=== PATIENT | male | born 1950 | race Caucasian/White ===

== ENCOUNTER 2020-09-21 13:19 | Emergency (ER) | payer MEDICARE, OTHER ==
[~2020-09-21] VITALS: Ht 175.2 cm; Wt 79.0 kg
--- NOTE | 2020-09-21 13:56 | ED Respiratory ---
General Chief Complaint: Respiratory Problems Stated Complaint: SOB; COVID+ Nursing Triage Note: Pt presents per POV with history positive COVID since Friday. Symptoms of dry cough, fatigue and fever up to 102.0. Pt states RN granddaughter insists on ER visit as her mother (his dgt) in ER yesterday of COVID complication. Pt requests a basic examine and some steroid. Source: patient History of Present Illness Date Seen by Provider: Sep 21, 2020 Time Seen by Provider: 13:21 Initial Comments 70-year-old male presenting with shortness of breath and cough as well as fatigue and fever. His daughter in the emergency department yesterday with respiratory complications. The patient himself was tested and found to be positive for COVID last Friday. He continues to have dry nonproductive cough with fever up to 102 Fahrenheit and fatigue. He states that today he had family in town after the of his daughter. One of them includes his granddaughter who is a nurse and was concerned about his symptoms. He also is a smoker about one pack per day. He denies having pain anywhere. He is not more short of breath today than usual. He did take Tylenol about 20 minutes prior to arriving in the emergency department. He usually follows with the [place] clinic here in town and only takes medicine for cholesterol. He denies any allergies to medications. Allergies and Home Medications Allergies Coded Allergies: No Known Drug Allergies (Unverified , 09/21/20) Home Medications Prednisone 20 Mg Tab, 40 MG PO DAILY Prescribed by: KOLBY HAZEL on 09/21/20 3228 Patient Home Medication List Home Medication List Reviewed: Yes Review of Systems Review of Systems Constitutional: chills; No dizziness; fever, malaise EENTM: No ear discharge, No hoarseness, No nose congestion, No throat pain Respiratory: see HPI; No stridor, No wheezing Cardiovascular: No chest pain Gastrointestinal: no symptoms reported Genitourinary: no symptoms reported Musculoskeletal: no symptoms reported Skin: no symptoms reported Psychiatric/Neurological: No Symptoms Reported Hematologic/Lymphatic: No Symptoms Reported Past Kocburb-Mzuuzp-Ndiwmu Hx Past Med/Social Hx: Reviewed Nursing Past Med/Soc Hx Patient Social History Alcohol Use: Denies Use Recreational Drug Use: No Smoking Status: Current Everyday Smoker Type Used: Cigarettes 2nd Hand Smoke Exposure: Yes Recent Foreign Travel: No Contact w/Someone Who Travel: No Recent Infectious Disease Expo: No Recent Hopitalizations: No Immunizations Up To Date Date of Influenza Vaccine: Jul 27, 2020 Seasonal Allergies Seasonal Allergies: No Past Medical History Surgeries: Yes (stents for L leg circulation) Respiratory: No (Tobaccoism) Cardiac: Yes High Cholesterol Neurological: No Genitourinary: No Gastrointestinal: No Musculoskeletal: No Endocrine: No HEENT: No Cancer: No Psychosocial: No Integumentary: No Blood Disorders: No Physical Exam Vital Signs - First Documented 09/21/20 13:25 Temp 37.4 Pulse 87 Resp 20 B/P (MAP) 147/75 (99) Pulse Ox 95 O2 Delivery Room Air Capillary Refill : Less Than 3 Seconds Height: '" Weight: lbs. oz. kg; 25.00 BMI Method: General Appearance: WD/WN, no apparent distress HEENT: PERRL/EOMI, pharynx normal Neck: non-tender, supple, normal inspection Respiratory: chest non-tender, lungs clear, normal breath sounds, no respiratory distress, no accessory muscle use Cardiovascular: normal peripheral pulses, regular rate, rhythm Gastrointestinal: normal bowel sounds, non tender, soft, no pulsatile mass Extremities: normal range of motion, non-tender, normal inspection, no pedal edema, normal capillary refill Neurologic/Psychiatric: data entry II-XII nml as tested, no motor/sensory deficits, alert, oriented x 3 Skin: normal color, warm/dry Focused Exam Lactate Level 09/21/20 13:40: Lactic Acid Level 1.02 Lactic Acid Level Laboratory Tests Test 09/21/20 13:40 Lactic Acid Level 1.02 MMOL/L (0.50-2.00) Progress/Results/Core Measures Suspected Sepsis Recent Fever Within 48 Hours: Yes Infection Criteria Present: Suspected New Infection New/Unexplained Altered Menta: No Sepsis Screen: No Definite Risk SIRS Temperature: Pulse: 87 Respiratory Rate: 20 Laboratory Tests 09/21/20 13:40: White Blood Count 4.1L Blood Pressure 147 /75 Mean: 99 09/21/20 13:40: Lactic Acid Level 1.02 Laboratory Tests 09/21/20 13:40: Creatinine 0.83, Platelet Count 219, Total Bilirubin 0.4 Results/Orders Lab Results Laboratory Tests Test 09/21/20 13:40 Range/Units White Blood Count 4.1 L 4.3-11.0 10^3/uL Red Blood Count 5.17 4.35-5.85 10^6/uL Hemoglobin 16.1 13.3-17.7 G/DL Hematocrit 47 40-54 % Mean Corpuscular Volume 91 80-99 FL Mean Corpuscular Hemoglobin 31 25-34 PG Mean Corpuscular Hemoglobin Concent 34 32-36 G/DL Red Cell Distribution Width 13.5 10.0-14.5 % Platelet Count 219 130-400 10^3/uL Mean Platelet Volume 8.8 7.4-10.4 FL Immature Granulocyte % (Auto) 0 % Neutrophils (%) (Auto) 69 42-75 % Lymphocytes (%) (Auto) 19 12-44 % Monocytes (%) (Auto) 12 0-12 % Eosinophils (%) (Auto) 0 0-10 % Basophils (%) (Auto) 0 0-10 % Neutrophils # (Auto) 2.9 1.8-7.8 X 10^3 Lymphocytes # (Auto) 0.8 L 1.0-4.0 X 10^3 Monocytes # (Auto) 0.5 0.0-1.0 X 10^3 Eosinophils # (Auto) 0.0 0.0-0.3 10^3/uL Basophils # (Auto) 0.0 0.0-0.1 10^3/uL Immature Granulocyte # (Auto) 0.0 0.0-0.1 10^3/uL Sodium Level 134 L 135-145 MMOL/L Potassium Level 4.1 3.6-5.0 MMOL/L Chloride Level 100 98-107 MMOL/L Carbon Dioxide Level 20 L 21-32 MMOL/L Anion Gap 14 5-14 MMOL/L Blood Urea Nitrogen 16 7-18 MG/DL Creatinine 0.83 0.60-1.30 MG/DL Estimat Glomerular Filtration Rate > 60 BUN/Creatinine Ratio 19 Glucose Level 100 70-105 MG/DL Lactic Acid Level 1.02 0.50-2.00 MMOL/L Calcium Level 8.5 8.5-10.1 MG/DL Corrected Calcium 8.7 8.5-10.1 MG/DL Total Bilirubin 0.4 0.1-1.0 MG/DL Aspartate Amino Transf (AST/SGOT) 33 5-34 U/L Alanine Aminotransferase (ALT/SGPT) 21 0-55 U/L Alkaline Phosphatase 94 40-136 U/L C-Reactive Protein 3.26 H <0.50 MG/DL Total Protein 7.1 6.4-8.2 GM/DL Albumin 3.8 3.2-4.5 GM/DL My Orders Orders - KOLBY HAZEL MD Monitor-Rhythm Ecg Trace Only (09/21/20 13:45) Ed Iv/Invasive Line Start (09/21/20 13:45) Cbc With Automated Diff (09/21/20 13:45) Comprehensive Metabolic Panel (09/21/20 13:45) Crp Fs (09/21/20 13:45) Lactic Acid Analyzer (09/21/20 13:45) Chest 1 View Ap/Pa Only (09/21/20 13:46) Rx-Albuterol Inhaler (Rx-Ventolin Hfa) (09/21/20 14:00) Dexamethasone Injection (Decadron Inje (09/21/20 13:50) Covid-19 External Lab Results (09/21/20 13:49) Isolation Central Supply Req (09/21/20 13:49) Medications Given in ED Current Medications Medications Dose Ordered Sig/Claudia Route Start Time Stop Time Status Last Admin Dose Admin Albuterol Sulfate 2 PUFFS IH Q4-6HR PRN short... RTQ4HR PRN IH 09/21/20 14:00 09/21/20 14:45 DC 09/21/20 14:01 18 GM Vital Signs/I&O 09/21/20 09/21/20 13:25 14:45 Temp 37.4 37.3 Pulse 87 79 Resp 20 19 B/P (MAP) 147/75 (99) 145/80 (99) Pulse Ox 95 95 O2 Delivery Room Air Room Air Capillary Refill : Less Than 3 Seconds Blood Pressure Mean: 99 Progress Note #1: Progress Note Obtain basic labs and lactic acid. Will try breathing treatment with inhaler and give a dose of dexamethasone 10 mg IV. Obtain chest x-ray to evaluate for possible infiltrates for bacterial source for pneumonia. On his initial exam and review of vital signs his oxygen saturation is 95-96% on room air. He is not tachycardic and his blood pressure is normal. His lung sounds are clear. Would anticipate that he could be discharged home, and he has no indication to admit off of just his initial exam and vitals. Progress Note #2: Time: 14:14 Progress Note CBC shows WBC count at lower limit of normal at 4.1 consistent with viral infection. Chemistry shows normal Lactic acid at 1.02. Elevated CRP to go with inflammatory response of infection. CXR with diffuse inflammatory changes but no definite infiltrate to indicate a bacterial pneumonia. Continued oxygen saturation 95-96% on room air with pulse around 80 sinus rhythm and blood pressure 136/85, respiratory rate 15-17 breaths per minute. 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 Diagnostic Imaging Diagonstic Imaging: Xray Plain Films/CT/US/NM/MRI: chest Comments [facility]. [place], [place] NAME: NASEEM PYLE [facility] REC#: [id number] PT STATUS: REG ER : 1950 PHYSICIAN: KOLBY HAZEL MD ADMIT DATE: 09/21/20/ER FS Draft Date of Exam:09/21/20 CHEST 1 VIEW AP/PA ONLY Indication: Dyspnea and fever, follow-up COVID pneumonia. Comparison: None. Discussion: 2 portable frontal upright views of the chest were obtained. Mild infiltrates are noted within the right mid-upper lung, consistent with viral pneumonia. Normal heart size. No pleural fluid or pneumothorax. No osseous abnormality. Impression: 1. Right mid-upper lung infiltrate. Dictated on workstation # [id number] Dict: 09/21/20 1413 Trans: 09/21/20 1414 [facility] [id number] Interpreted by: HATTIE SANCHEZ MD Electronically signed by: Departure Impression Primary Impression: Shortness of breath Additional Impressions: COVID-19 virus infection Tobacco abuse Disposition: 01 HOME, SELF-CARE Condition: Stable Departure-Patient Inst. Decision time for Depature: 14:33 Referrals: SREE AMOR MD (PCP/Family) Primary Care Physician Patient Instructions: Coronavirus Disease 2019 (COVID-19) (DC), How to Use Your Metered Dose Inhaler (Adults), SMOKING CESSATION, Shortness of Breath (Dyspnea) (DC) Add. Discharge Instructions: Use Albuterol inhaler 2 puffs every 4 to 6 hours as needed for shortness of emerita ath or wheezing. Use steroid to help with inflammation in your airways and help with cough. May continue with Acetaminophen or Ibuprofen as needed for fever over 101 F Make sure you are drinking plenty of fluids and stay well hydrated. Get plenty of rest. Follow up with clinic if not improving this next week. Return or seek medical care for worsening breathing that is not improving with using the inhaler and steroid, fever that is not responding to medicine to help bring it down below 101 F. All discharge instructions reviewed with patient and/or family. Voiced understanding. Scripts Prednisone (Prednisone) 20 Mg Tab 40 MG PO DAILY for 5 Days, #10 TAB 0 Refills Prov: KOLBY HAZEL MD 09/21/20 KOLBY HAZEL MD Sep 21, 2020 13:56
[2020-09-21] MEDS ORDERED: RX-ALBUTEROL INHALER (VENTOLIN HFA) 18 GM IH PRN (14:00)
[2020-09-21 14:03] LABS: BASOPHILS % (AUTO) 0 % (0-10); EOSINOPHILS % (AUTO) 0 % (0-10); HEMATOCRIT 47 % (40-54); HEMOGLOBIN 16.1 G/DL (13.3-17.7); LYMPHOCYTES # (AUTO) 0.8 X 10^3 (1.0-4.0); LYMPHOCYTES % (AUTO) 19 % (12-44); MEAN CORPUSCULAR HEMOGLOBIN 31 PG (25-34); MEAN CORPUSCULAR HGB CONC 34 G/DL (32-36); MEAN CORPUSCULAR VOLUME 91 FL (80-99); MEAN PLATELET VOLUME 8.8 FL (7.4-10.4); MONOCYTES # (AUTO) 0.5 X 10^3 (0.0-1.0); MONOCYTES % (AUTO) 12 % (0-12); NEUTROPHILS # (AUTO) 2.9 X 10^3 (1.8-7.8); NEUTROPHILS % (AUTO) 69 % (42-75); PLATELET COUNT 219 10^3/uL (130-400); WHITE BLOOD COUNT 4.1 10^3/uL (4.3-11.0)
[2020-09-21 14:10] LABS: CARBON DIOXIDE 20 MMOL/L (21-32); CHLORIDE 100 MMOL/L (98-107); POTASSIUM 4.1 MMOL/L (3.6-5.0); SODIUM 134 MMOL/L (135-145)
[2020-09-21 14:11] LABS: ALANINE AMINOTRANSFERASE 21 U/L (0-55); ALBUMIN 3.8 GM/DL (3.2-4.5); ALKALINE PHOSPHATASE 94 U/L (40-136); BILIRUBIN,TOTAL 0.4 MG/DL (0.1-1.0); BUN/CREATININE RATIO 19; CALCIUM 8.5 MG/DL (8.5-10.1); CREATININE SERUM 0.83 MG/DL (0.60-1.30); GFR ESTIMATED > 60; GLUCOSE 100 MG/DL (70-105); TOTAL PROTEIN 7.1 GM/DL (6.4-8.2)
--- NOTE | 2020-09-21 14:15 | Diagnostic Imaging Report ---
Indication: Dyspnea and fever, follow-up COVID pneumonia. Comparison: None. Discussion: 2 portable frontal upright views of the chest were obtained. Mild infiltrates are noted within the right mid-upper lung, consistent with viral pneumonia. Normal heart size. No pleural fluid or pneumothorax. No osseous abnormality. Impression: 1. Right mid-upper lung infiltrate. Dictated by: Dictated on workstation # [id number]
[2020-09-21] MEDS ORDERED: PRD20T PO (14:33)
[2020-09-21 14:45] VITALS: BP 145/80
--- NOTE | 2020-09-21 14:45 | NUR ---
See graphic vital sign strips for further assessment.
[2020-09-21] MEDS ORDERED: Simvastatin (15:10)
== END 2020-09-21 14:45 | disposition home or self-care (01) ==
LOC: EDUNIT# 13:19 → ER FS 13:21
DX: U07.1 COVID-19 (principal); F17.210 Nicotine dependence, cigarettes, uncomplicated; Z79.52 Long term (current) use of systemic steroids
CPT/HCPCS: 36415; 71045; 80053; 83605; 85025; 86141; 93041

== ENCOUNTER 2020-10-15 10:03 | Emergency (ER) | payer MEDICARE, OTHER ==
[~2020-10-15] VITALS: Ht 175.2 cm; Wt 75.0 kg
[~2020-10-15 10:03] MED LIST: PRD20T PO; Simvastatin
--- NOTE | 2020-10-15 10:31 | ED GU-Male ---
General Chief Complaint: - Urinary Stated Complaint: UNABLE TO URINATE Source: patient Exam Limitations: no limitations History of Present Illness Date Seen by Provider: Oct 15, 2020 Time Seen by Provider: 10:11 Initial Comments Patient presents ER by private conveyance from home with chief complaint of urinary retention since yesterday. He started antiitch medicine more powerful than Benadryl from his doctor 2 days ago and it has caused urinary retention. He is never had prostatism or have to see a urologist before. Never had a Marquez catheter. He is not having painful urination just inability to urinate more than a few drops at a time. He is not having fever or chills. He says his rash is better. He did get a shingles shot. No diarrhea. Follows with Dr. Luciano in [place] as well as the [place]. Allergies and Home Medications Allergies Coded Allergies: No Known Drug Allergies (Unverified , 09/21/20) Home Medications Ondansetron 4 Mg Tab.rapdis, 4 MG PO Q6H PRN for NAUSEA/VOMITING Prescribed by: KAMRAN MCCARTY on 10/15/20 1416 Prednisone 20 Mg Tab, 40 MG PO DAILY Prescribed by: KOLBY HAZEL on 09/21/20 1433 Tamsulosin HCl 0.4 Mg Cap, 0.4 MG PO HS Prescribed by: KAMRAN MCCARTY on 10/15/20 1416 Patient Home Medication List Home Medication List Reviewed: Yes Review of Systems Review of Systems Constitutional: No chills, No diaphoresis, No fever EENTM: No ear discharge, No ear pain Respiratory: No cough, No short of breath Cardiovascular: No chest pain, No Hx of Intervention Gastrointestinal: No RUQ; see HPI, abdominal pain (Suprapubic fullness and pressure); No constipation, No diarrhea, No nausea Genitourinary: denies discharge, denies dysuria Musculoskeletal: No back pain, No joint pain All Other Systemes Reviewed Negative Unless Noted: Yes Past Ysxtumh-Lbyurm-Attumd Hx Patient Social History Alcohol Use: Denies Use Recreational Drug Use: No Smoking Status: Current Everyday Smoker Type Used: Cigarettes 2nd Hand Smoke Exposure: Yes Recent Foreign Travel: No Contact w/Someone Who Travel: No Recent Hopitalizations: No Immunizations Up To Date Date of Influenza Vaccine: Jul 27, 2020 Seasonal Allergies Seasonal Allergies: No Past Medical History Surgeries: Yes (stents for L leg circulation) Respiratory: No (Tobaccoism) Cardiac: Yes High Cholesterol Neurological: No Genitourinary: No Gastrointestinal: No Musculoskeletal: No Endocrine: No HEENT: No Cancer: No Psychosocial: No Integumentary: No Blood Disorders: No Physical Exam Vital Signs Vital Signs - First Documented 10/15/20 10:09 Pulse 92 Resp 18 Capillary Refill : Height, Weight, BMI Height: '" Weight: lbs. oz. kg; 25.00 BMI Method: General Appearance: WD/WN, moderate distress HEENT: PERRL/EOMI, pharynx normal Neck: full range of motion, normal inspection Cardiovascular: normal peripheral pulses, regular rate, rhythm Respiratory: no respiratory distress, no accessory muscle use Gastrointestinal: normal bowel sounds, soft, tenderness (Suprapubic prominent bladder impression) Neurologic/Psychiatric: alert, oriented x 3 Progress/Results/Core Measures Suspected Sepsis SIRS Temperature: Pulse: Respiratory Rate: Laboratory Tests 10/15/20 10:46: White Blood Count 9.5 Blood Pressure / Mean: Laboratory Tests 10/15/20 10:46: Creatinine 1.22, Platelet Count 356, Total Bilirubin 0.7 Results/Orders Lab Results Laboratory Tests Test 10/15/20 10:37 10/15/20 10:46 10/15/20 13:34 Range/Units Urine Color YELLOW Urine Clarity CLEAR Urine pH 8.0 5-9 Urine Specific [place] 1.015 L 1.016-1.022 Urine Protein NEGATIVE NEGATIVE Urine Glucose (UA) NEGATIVE NEGATIVE Urine Ketones TRACE H NEGATIVE Urine Nitrite NEGATIVE NEGATIVE Urine Bilirubin NEGATIVE NEGATIVE Urine Urobilinogen 0.2 < = 1.0 MG/DL Urine Leukocyte Esterase NEGATIVE NEGATIVE Urine RBC (Auto) NEGATIVE NEGATIVE Urine RBC NONE /HPF Urine WBC NONE /HPF Urine Squamous Epithelial Cells NONE /HPF Urine Crystals NONE /LPF Urine Amorphous Sediment LARGE MARK PHOSPHATE H /LPF Urine Bacteria NEGATIVE /HPF Urine Casts NONE /LPF Urine Mucus NEGATIVE /LPF Urine Culture Indicated NO White Blood Count 9.5 4.3-11.0 10^3/uL Red Blood Count 5.20 4.30-5.52 10^6/uL Hemoglobin 16.2 13.3-17.7 g/dL Hematocrit 47 40-54 % Mean Corpuscular Volume 90 80-99 fL Mean Corpuscular Hemoglobin 31 25-34 pg Mean Corpuscular Hemoglobin Concent 35 32-36 g/dL Red Cell Distribution Width 13.2 10.0-14.5 % Platelet Count 356 130-400 10^3/uL Mean Platelet Volume 8.4 L 9.0-12.2 fL Immature Granulocyte % (Auto) 0 % Neutrophils (%) (Auto) 84 H 42-75 % Lymphocytes (%) (Auto) 9 L 12-44 % Monocytes (%) (Auto) 7 0-12 % Eosinophils (%) (Auto) 0 0-10 % Basophils (%) (Auto) 0 0-10 % Neutrophils # (Auto) 8.0 H 1.8-7.8 10^3/uL Lymphocytes # (Auto) 0.8 L 1.0-4.0 10^3/uL Monocytes # (Auto) 0.7 0.0-1.0 10^3/uL Eosinophils # (Auto) 0.0 0.0-0.3 10^3/uL Basophils # (Auto) 0.0 0.0-0.1 10^3/uL Immature Granulocyte # (Auto) 0.0 0.0-0.1 10^3/uL Sodium Level 134 L 135-145 MMOL/L Potassium Level 3.3 L 3.6-5.0 MMOL/L Chloride Level 94 L 98-107 MMOL/L Carbon Dioxide Level 25 21-32 MMOL/L Anion Gap 15 H 5-14 MMOL/L Blood Urea Nitrogen 30 H 7-18 MG/DL Creatinine 1.22 0.60-1.30 MG/DL Estimat Glomerular Filtration Rate 59 BUN/Creatinine Ratio 25 Glucose Level 116 H 70-105 MG/DL Calcium Level 9.0 8.5-10.1 MG/DL Corrected Calcium 9.2 8.5-10.1 MG/DL Total Bilirubin 0.7 0.1-1.0 MG/DL Aspartate Amino Transf (AST/SGOT) 30 5-34 U/L Alanine Aminotransferase (ALT/SGPT) 26 0-55 U/L Alkaline Phosphatase 79 40-136 U/L Total Protein 7.4 6.4-8.2 GM/DL Albumin 3.8 3.2-4.5 GM/DL Group A Streptococcus Screen NEGATIVE NEGATIVE My Orders Orders - KAMRAN MCCARTY Ua Culture If Indicated (10/15/20 10:04) Catheter(Urinary) Insert & Ass 03,15 (10/15/20 10:04) Bladder Scan (10/15/20 10:19) Lidocaine 2% (Urojet) (Xylocaine Urojet) (10/15/20 10:30) Cbc With Automated Diff (10/15/20 10:26) Comprehensive Metabolic Panel (10/15/20 10:26) Lidocaine 2% (Urojet) (Xylocaine Urojet) (10/15/20 10:24) Ondansetron Injection (Zofran Injectio (10/15/20 11:30) Ed Iv/Invasive Line Start (10/15/20 11:32) Lactated Ringers (Lr 1000 Ml Iv Solution (10/15/20 11:45) Abdomen, Flat & Upright/Decub (10/15/20 11:52) Bisacodyl Suppository (Dulcolax Supposit (10/15/20 12:45) Rapid Strep A Screen (10/15/20 13:29) Medications Given in ED Current Medications Medications Dose Ordered Sig/Claudia Route Start Time Stop Time Status Last Admin Dose Admin Bisacodyl 10 mg ONCE ONCE KS 10/15/20 12:45 10/15/20 12:46 DC 10/15/20 12:48 10 MG Lactated Ringer's 1,000 ml @ 0 mls/hr Q0M ONCE IV 10/15/20 11:45 10/15/20 11:46 DC 10/15/20 12:04 1,000 MLS/HR Lidocaine HCl 10 ml ONCE ONCE TOP 10/15/20 10:30 10/15/20 10:31 DC 10/15/20 10:35 10 ML Ondansetron HCl 8 mg ONCE ONCE IVP 10/15/20 11:30 10/15/20 11:31 DC 10/15/20 12:04 8 MG Vital Signs/I&O 10/15/20 10:09 Pulse 92 Resp 18 B/P (MAP) Capillary Refill : Progress Note #1: Time: 10:30 Progress Note Patient is quite uncomfortable with his bladder fullness. 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 He does not appear to have any delirium. Plan to go ahead and use Urojet and a Marquez catheter to decompress his urinary bladder. We will check some basic labs including a CBC CMP as well as urinalysis. Progress Note #2: Time: 12:17 Progress Note BUN significantly elevated the patient appears to be dry. He could be having partial effects of anticholinergic toxicity but is not delirious. Plan to give him some IV fluids and encourage oral fluids. He is also been complaining of constipation lately so we will get a KUB to rule out significant constipation or obvious blockage. He did recently just get over COVID-19 and was having a lot of GI symptoms with that so this is probably just an extension of his recent infection. Given the fluids and retrying some ice chips. His nausea is better after the Zofran. Can give him a suppository and if we can get his symptoms under control and help him have a bowel movement he will feel well enough that he thinks he can go home. We have discouraged use of any anticholinergics such as wgxc-abo-bribfbs sleep medicines Benadryl Vistaril etc. Patient is okay with this. Progress Note #3: Time: 13:35 Progress Note Patient is feeling better. He was able to pass a very small amount of stool. He is got about 600 cc of his liter of fluids and. We have encouraged him to take more but he would prefer to do oral fluids at home. Plan to leave the Marquez catheter and put him on Flomax and have him follow-up with urologist this week. He said he was having difficulty with swallowing so he examined the back of his throat which was hyperemic, injected and mildly inflamed but no exudates or lesions. Rapid strep was obtained although it is probably related to his recent Covid infection. Diagnostic Imaging Diagonstic Imaging: Xray Plain Films/CT/US/NM/MRI: abdomen, pelvis Comments NAME: NASEEM PYLE [facility] REC#: [id number] PT STATUS: REG ER : 1950 PHYSICIAN: KAMRAN MCCARTY MD ADMIT DATE: 10/15/20/ER Draft Date of Exam:10/15/20 ABDOMEN, FLAT & UPRIGHT/DECUB Indication: Abdominal pain, dysuria. Comparison: None. Discussion: Three views of the abdomen were obtained. Patchy infiltrates are noted within the lungs, incompletely viewed. No constipation. Possible small stone projected over the left kidney. Vascular stent within the left common iliac artery. Vascular calcifications are present. No free air. No acute osseous abnormality. Impression: 1. Nonobstructive bowel gas pattern. 2. Possible punctate nonobstructing left renal calculus. Dictated on workstation # [id number] Dict: 10/15/20 1230 Trans: 10/15/20 1232 [facility] [id number] Interpreted by: HATTIE SANCHEZ MD Electronically signed by: Departure Impression Primary Impression: Anticholinergic drug overdose Qualified Codes: T44.3X1A - Poisoning by other parasympatholytics [anticholinergics and antimuscarinics] and spasmolytics, accidental (unintentional), initial encounter Additional Impressions: Dehydration Obstipation Acute urinary retention Disposition: HOME, SELF-CARE Condition: Improved Departure-Patient Inst. Decision time for Depature: 14:10 Referrals: NO,LOCAL PHYSICIAN (PCP) Primary Care Physician TANIKA LITTLE APRN (Family) Primary Care Physician CHRISTIAN QUINTERO MD Patient Instructions: Constipation in Adults, Dehydration, Adult ED, Urinary Obstruction (DC) Add. Discharge Instructions: Your constipation, dehydration and inability to urinate are probably due to the Vistaril. Do not take any more hydroxyzine, Benadryl, Unisom or other yffl-ycr-sqtmezs antiitch or sleep medicines until after you have conferred with your primary care doctor. Drink lots of fluids. Flush this medicine out of your body and this will also help you have a bowel movement. Continue to use enemas, suppositories and MiraLAX. 1 capful of MiraLAX in 6 to 8 ounces of fluid 2-3 times a day. Follow the instructions to care for your Marquez bag and follow-up with Dr. Quintero, urology by calling for an appointment tomorrow. Return to the ER if you are experiencing fever, intractable pain or nausea. Ondansetron 1 tablet every 6 hours as necessary for nausea. Flomax 1 capsule at night until Dr. Quintero releases you. All discharge instructions reviewed with patient and/or family. Voiced understanding. Scripts Ondansetron (Ondansetron Odt) 4 Mg Tab.rapdis 4 MG PO Q6H PRN for NAUSEA/VOMITING, #15 TAB 0 Refills Prov: KAMRAN MCCARTY 10/15/20 Tamsulosin HCl (Flomax) 0.4 Mg Cap 0.4 MG PO HS for 14 Days, #14 CAP 0 Refills Prov: KAMRAN MCCARTY 10/15/20 Copy Copies To 1: CHRISTIAN QUINTERO MD, TITUS J Oct 15, 2020 10:30
[2020-10-15] MEDS: LIDOCAINE UROJET 2% GEL 10 ML PKG TOP ONE ×2 (10:35→11:08)
[2020-10-15 10:42] LABS: BILIRUBIN,URINE NEGATIVE (NEGATIVE); CLARITY,URINE CLEAR; COLOR,URINE YELLOW; GLUCOSE, URINE (UA) NEGATIVE (NEGATIVE); KETONES,URINE TRACE (NEGATIVE); LEUKOCYTE ESTERASE ,URINE NEGATIVE (NEGATIVE); NITRITE,URINE NEGATIVE (NEGATIVE); PROTEIN,URINE NEGATIVE (NEGATIVE)
--- NOTE | 2020-10-15 10:43 | NUR ---
UPDATE TO AND GRANDDAUGHTER. Addendum: 10/15/20 at 1318 by PMCCLURE UP TO BSC FEELING BETTER FLUIDS CON'T TO INFUSE
[2020-10-15 10:53] LABS: AMORPHOUS SEDIMENT,UR LARGE AMOR PHOSPHATE /LPF; BACTERIA,URINE NEGATIVE /HPF
[2020-10-15 10:53] LABS: BASOPHILS % (AUTO) 0 % (0-10); EOSINOPHILS % (AUTO) 0 % (0-10); HEMATOCRIT 47 % (40-54); HEMOGLOBIN 16.2 g/dL (13.3-17.7); LYMPHOCYTES # (AUTO) 0.8 10^3/uL (1.0-4.0); LYMPHOCYTES % (AUTO) 9 % (12-44); MEAN CORPUSCULAR HEMOGLOBIN 31 pg (25-34); MEAN CORPUSCULAR HGB CONC 35 g/dL (32-36); MEAN CORPUSCULAR VOLUME 90 fL (80-99); MEAN PLATELET VOLUME 8.4 fL (9.0-12.2); MONOCYTES # (AUTO) 0.7 10^3/uL (0.0-1.0); MONOCYTES % (AUTO) 7 % (0-12); NEUTROPHILS % (AUTO) 84 % (42-75); PLATELET COUNT 356 10^3/uL (130-400); WHITE BLOOD COUNT 9.5 10^3/uL (4.3-11.0)
[2020-10-15 11:02] LABS: ALBUMIN 3.8 GM/DL (3.2-4.5); POTASSIUM 3.3 MMOL/L (3.6-5.0)
[2020-10-15 11:05] LABS: TOTAL PROTEIN 7.4 GM/DL (6.4-8.2)
[2020-10-15 11:07] LABS: BILIRUBIN,TOTAL 0.7 MG/DL (0.1-1.0)
[2020-10-15 11:08] LABS: CREATININE SERUM 1.22 MG/DL (0.60-1.30)
[2020-10-15] MEDS: LIDOCAINE UROJET 2% GEL 10 ML PKG ONE (11:09)
[2020-10-15] MEDS ORDERED: ONDANSETRON 4 MG/2 ML (SDV) Z0FRAN IVP ONE (11:30)
[2020-10-15] MEDS ORDERED: LACTATED RINGERS 1,000 ML IV ONE (11:45)
--- NOTE | 2020-10-15 11:52 | NUR ---
UPDATE GIVE TO CLARK WREN
--- NOTE | 2020-10-15 12:32 | Diagnostic Imaging Report ---
Indication: Abdominal pain, dysuria. Comparison: None. Discussion: Three views of the abdomen were obtained. Patchy infiltrates are noted within the lungs, incompletely viewed. No constipation. Possible small stone projected over the left kidney. Vascular stent within the left common iliac artery. Vascular calcifications are present. No free air. No acute osseous abnormality. Impression: 1. Nonobstructive bowel gas pattern. 2. Possible punctate nonobstructing left renal calculus. Dictated by: Dictated on workstation # [id number]
[2020-10-15] MEDS ORDERED: BISACODYL 10 MG SUPP (DULCOLAX) PR ONE (12:45)
--- NOTE | 2020-10-15 13:30 | NUR ---
C/O THROAT HURTING WHILE DRINKING B[place]NA TO BEDSIDE. STREP SCREEN GIVEN.
--- NOTE | 2020-10-15 14:08 | NUR ---
DR MCCARTY UPDATED CLARK WREN ABOUT DISCHARGE
[2020-10-15] MEDS ORDERED: TMSL.4C PO (14:16)
[2020-10-15] MEDS ORDERED: ONDA4TAB11 PO (14:16)
--- NOTE | 2020-10-15 14:17 | NUR ---
JACOBS BAG CONVERTED TO LEG BAG INSTRUCTION ON USE OF LEG BAG DONE.
[2020-10-15 14:34] VITALS: BP 92/172
== END 2020-10-15 14:33 | disposition home or self-care (01) ==
LOC: EDUNIT# 10:03 → ER 10:05
DX: T44.3X1A Poisoning by other parasympatholytics [anticholinergics and antimuscarinics] and spasmolytics, accidental (unintentional), initial encounter (principal); E86.0 Dehydration; K59.00 Constipation, unspecified; R33.9 Retention of urine, unspecified; F17.210 Nicotine dependence, cigarettes, uncomplicated; Z79.52 Long term (current) use of systemic steroids
CPT/HCPCS: 36415; 51702; 74019; 80053; 81000; 85025; 87430